=== PATIENT | female | born 2000 | race Caucasian/White ===

== ENCOUNTER → 2018-08-27 | Outpatient (CLI) | END | disposition home or self-care (01) ==

== ENCOUNTER 2018-12-28 07:00 | Day surgery (SDC) | payer BC ==
[2018-12-28] VITALS (15 sets, daily range): BP systolic 102–137; BP diastolic 48–78; PULSE 72–101; RESP 14–22; Ht 149.9 cm; Wt 60.3 kg
[~2018-12-28] VITALS: Ht 149.9 cm; Wt 60.3 kg
[~2018-12-28 07:00] MED LIST: CEFAZOLIN 1 GM/50 ML (PMX) 50 ML IVPB ONE; LACTATED RINGER'S 1,000 ML IV* SCH
--- NOTE | 2018-12-28 07:17 | PREAC ---
Date/Time of Note Date/Time of Note DATE: 12/28/18 TIME: 07:17 Anesthesia Eval and Record Evaluation Time Pre-Procedure Interview DATE: 12/28/18 TIME: 07:17 Age 18 Sex female NPO: 8 hrs Preoperative diagnosis Left ACL rupture, medial meniscus tear Planned procedure Left knee operative arthroscopy, ACL reconstruction, medial meniscus repair vs partial meniscectomy Past Medical History Past Medical History: None Surgery & Anesthesia Issues No known issue Meds Anticoagulation: No Beta Rona within 24 hr: No Reason Beta Rona not given: Pt. not on B-Rona Current Medications Lactated Ringer's 1,000 ml @ 100 mls/hr Q10H IV* ; Start 12/28/18 at 06:00; Stop 12/28/18 at 15:59 Meds reviewed: Yes Allergies Coded Allergies: ibuprofen (Unverified Allergy, Unknown, 12/27/18) Allergies Reviewed: Yes Labs/Studies Labs Reviewed: Reviewed by anesthesiologist test: Negative Pre-procedure Exam Airway: Adequate mouth opening Mallampati: Mallampati I Teeth: Normal Lung: Normal Heart: Normal ASA Physical Status ASA physical status: 1 Emergency: None Planned Anesthetic General/MAC: LMA Planned Pain Management Single shot nerve block, Parenteral pain med Pre-operative Attestations Prior to commencing anesthesia and surgery, the patient was re-evaluated, there was verification of: *The patient's identity *The results of appropriate recent lab work and preoperative vital signs *The above evaluation not changing prior to induction *Anesthetic plan, risk benefits, alternative and complications discussed with patient/family; questions answered; patient/family understands, accepts and wishes to proceed. FERMIN MORENO MD Dec 28, 2018 07:17
--- NOTE | 2018-12-28 07:34 | HPN ---
Date/Time of Note Date/Time of Note DATE: 12/28/18 TIME: 07:34 Interval H&P Admission Note Pt. seen H&P reviewed: No system changes CINDY PADILLA MD Dec 28, 2018 07:34
[2018-12-28] MEDS ORDERED: CEFAZOLIN 1 GM INJ ONE (07:41)
[2018-12-28] MEDS ORDERED: PROPOFOL 20 ML ONE (07:41)
[2018-12-28] MEDS ORDERED: ROPIVACAINE 0.5 % 30 ML VIAL ONE (07:41)
[2018-12-28] MEDS ORDERED: LIDOCAINE 2% (SDV) 5 ML INJ ONE (07:41)
[2018-12-28] MEDS ORDERED: POLYMYXIN/BACITRACIN 1L IRRIG ONE (08:28)
[2018-12-28] MEDS ORDERED: METOCLOPRAMIDE 10 MG INJ ONE (09:58)
[2018-12-28] MEDS ORDERED: ONDANSETRON 4 MG INJ ONE (09:58)
[2018-12-28] MEDS ORDERED: MEPERIDINE 25 MG INJ IV PRN (10:00)
[2018-12-28] MEDS ORDERED: ONDANSETRON 4 MG INJ IV PRN (10:00)
[2018-12-28] MEDS ORDERED: METOCLOPRAMIDE 10 MG INJ IV PRN (10:00)
[2018-12-28] MEDS ORDERED: MIDAZOLAM 1 MG/ML 2 ML INJ IV PRN (10:00)
[2018-12-28] MEDS ORDERED: FENTAnyl 50 MCG/ML VIAL IV PRN ×2 (10:00)
[2018-12-28] MEDS ORDERED: DIPHENHYDRAMINE 50 MG INJ IV PRN (10:00)
[2018-12-28] MEDS ORDERED: OXYCODONE/ACETAMINOPHEN (5/325) TAB PO PRN ×2 (10:00)
--- NOTE | 2018-12-28 10:16 | OPPN ---
Date/Time of Note Date/Time of Note DATE: 12/28/18 TIME: 10:15 Operative Report Preoperative Diagnosis LEFT ACL rupture, medial meniscus tear Postoperative Diagnosis same plus lateral meniscus tear Operation/Procedure Performed Left knee arthroscopy, ACL reconstruction with hamstring autograft, partial medial & lateral meniscectomy Surgeon see signature line library assistant none Anesthesia: general, other Estimated blood loss: 10 - 50 ml's Transfusion Required none Specimen none Grafts/Implants none Complications none CINDY PADILLA MD Dec 28, 2018 10:16
[2018-12-28] MEDS: FENTAnyl 50 MCG/ML VIAL IV PRN ×4 (10:21→10:55)
--- NOTE | 2018-12-28 11:08 | PAC ---
Date/Time of Note Date/Time of Note DATE: 12/28/18 TIME: 11:08 Post-Anesthesia Notes Post-Anesthesia Note Last documented vital signs Vital Signs Date Temp Pulse Resp B/P (MAP) Pulse Ox O2 O2 Flow FiO2 Time Delivery Rate 12/28/18 72 21 109/58 99 Room Air 10:48 (75) 12/28/18 98.8 10:19 Activity: WNL Respiratory function: WNL Cardiovascular function: WNL Mental status: Baseline Pain reasonably controlled: Yes Hydration appropriate: Yes Nausea/Vomiting absent: Yes FERMIN MORENO MD Dec 28, 2018 11:08
[2018-12-28] MEDS ORDERED: EPINEPHrine 0.1 MG/ML SYG ONE (11:27)
[2018-12-28] MEDS ORDERED: NA BICARBONATE 8.4% 50 ML SYG ONE (11:29)
--- NOTE | 2018-12-28 12:35 | OPR ---
DATE OF OPERATION: 12/28/2018 PREOPERATIVE DIAGNOSES: 1. Left anterior cruciate ligament rupture. 2. Left medial meniscus tear. POSTOPERATIVE DIAGNOSES: 1. Left anterior cruciate ligament rupture. 2. Left medial meniscus tear. 3. Left lateral meniscus tear. OPERATION: 1. Diagnostic arthroscopy, left knee. 2. Left anterior cruciate ligament reconstruction with hamstring autograft. 3. Left partial medial meniscectomy. 4. Left partial lateral meniscectomy. ANESTHESIA: General plus regional femoral nerve block. ANESTHESIOLOGIST: Dr. Osborne. TOURNIQUET TIME: 93 minutes. BLOOD LOSS: Less than 50 mL. COMPLICATIONS: None. CONDITION: To PACU stable. INDICATIONS: This is a 18-year-old female who injured her left knee playing soccer quite some time a go. She had persistent pain and instability and MRI revealed ACL rupture, as well as medial meniscus tear. Recommendation was made for operative treatment. All risks, benefits and alternatives to the procedure were thoroughly discussed with family and they wished to proceed. PROCEDURE: The patient was brought to the operating room and given a general anesthetic by the medina hesiologist. IV Ancef was administered. Dr. Osborne performed a regional femoral nerve block. A tourni quet was then applied to the left thigh and the left leg was placed into the arthroscopic leg alvarado. The right leg was placed into a padded well leg alvarado. The left lower extremity was then prepped and draped in the standard orthopedic fashion. Esmarch was used to exsanguinate the limb and the tourniquet was then elevated to 250 mmHg. A longit udinal incision was made centered between the tibial tubercle and medial flare of the tibia. Initial incision was made with a scalpel and Bovie cautery used for hemostasis. Blunt dissection was taken down to the sartorius fascia, which was then sharply incised. The gracilis and semitendinosus tendon s were each identified and isolated using a right-angle clamp. They were each sharply removed from t heir tibial tubercle attachment and a whip knot placed at the end of each. The soft tissue attachmen ts were cleared using blunt finger dissection under direct visualization. The tendon stripper was th en used to remove the 2 tendons in their entirety. They were placed on the back table for preparatio n. The grafts were prepared by removing all the muscular tissue using a Mcmahon elevator. A whip stitch was then used to tubularize the graft with FiberLoop. The grafts together were then sized to approx imately 7 mm. The knee was insufflated with 30 mL of fluid and a standard anterolateral portal was then made. The scope was inserted. Diagnostic arthroscopy was performed. Patellofemoral compartment was intact. I n the intercondylar notch, there was complete rupture of the ACL with extensive synovitis. The PCL w as intact. In the lateral compartment, there was a small lateral meniscus tear of the mid body. In the medial compartment, there was a meniscus tear of the mid body extending back toward the posterior horn. There was also extensive irregularity of the medial femoral condyle with some cartilage loss and fraying. There were also a few small loose bodies noted. Under direct visualization, a standard anteromedial portal was then made and the shaver was used to debride the ACL remnants, surrounding s ynovitis and loose bodies. The shaver was then also used to debride the lateral meniscus tear and me dial meniscus tear in combination with the Arthrocare wand for Coblation. The remaining meniscus was quite stable upon probing. The Arthrocare wand and shaver were also used on the femoral condyle def ect for chondroplasty. The Arthrocare wand and shaver were used to completely remove the ACL remnant s and then the bone cutting shaver was used to perform a notchplasty. The graft was sized to 7 mm on the back table and the gold tibial guide was then placed through the medial portal and longitudinal incision. The tibial guide pin was advanced and felt to be in good position. The 7 mm cigar reamer was used to ream the tibial tunnel. The 5-mm tyet-twt-jqh guide was placed through the tibial tunnel and hooked onto the back wall of the femur with the knee held in 90 degrees of flexion. The Beath p in was then passed through the [id number] guide and exited out through the skin where it was graspe d with a Leonidas. The Endobutton drill was used to drill the femoral tunnel, followed by the 7 mm aco rn reamer to ream a 35 mm femoral tunnel. A 7 mm dilator was used in both tunnels and the Beath pin was then exchanged for a suture. The Endobutton depth gauge revealed a 42 mm tunnel and therefore, a 15 mm Endobutton was selected. The graft was placed through the Endobutton on the back table and st ill sized at 7 mm. It was placed on the Graftmaster in tension and marked for passage. The graft wa s then passed through the tibial and femoral tunnel and the Endobutton toggled appropriately. The gr aft was secure on pullback from the tibial side. With the graft held in tension, the knee was taken through several cycles of range of motion. The graft was then secured with an 8 x 20 mm bio-absorbab le interference screw. This provided stable Gentry exam. The excess tendon was excised and the frieda gitudinal incision irrigated and closed using 0 Vicryl, 2-0 Vicryl, 3-0 Vicryl and 3-0 Monocryl. The portals were also closed using 3-0 Monocryl. Mastisol and Steri-Strips were applied to all incision s. A dry sterile dressing of 4 x 4's, Kerlix, and a 6-inch Beto bandage were then applied. The tourn iquet was released after 93 minutes. She was placed into a hinged knee range of motion brace and nas kened and taken to recovery room in stable condition. There were no immediate intraoperative or post operative complications. Dictated By: CINDY PORTILLO/RONI Conf#: [id number] DID#: [id number]
== END 2018-12-28 12:08 | disposition home or self-care (01) ==
LOC: SDS 07:00 → EDSTATUS 09:30 → SDS 12:08
PROVIDERS: ATTEND Orthopaedic Surgery Pediatric Orthopaedic Surgery
DX: S83.512D Sprain of anterior cruciate ligament of left knee, subsequent encounter (principal); S83.282D Other tear of lateral meniscus, current injury, left knee, subsequent encounter; S83.242D Other tear of medial meniscus, current injury, left knee, subsequent encounter; X58.XXXD Exposure to other specified factors, subsequent encounter
CPT/HCPCS: 29880; 29888; C1713; J0171; J0690; J2175; J2405; J2765; J2795; J3010